=== PATIENT | male | born 2000 | race Two or more races ===

== ENCOUNTER 2025-02-09 15:21 | Emergency (ER) | payer MEDICARE, MEDICAID ==
[2025-02-09] MEDS ORDERED: CALCIUM CHLOR(10%) 100MG/ML 10ML SYRINGE IV ONE (15:22)
--- NOTE | 2025-02-09 15:35 | ED.PDOC ---
CPR-HPI HPI Comments 25 y/o M, with PMHx of autism is ARCHIE in full arrest with AutoPulse in place. EMS reports patient is coming from home where he was witnessed by neighbor, to fall and go down twice while taking out trash cans. Per EMS, once family went outside to check patient he was found unresponsive and with no pulse; CPR was commenced immediately. Upon EMS arrival, patient was found pulseless with moderate cyanosis to the head. In the field patient was given x4 epinephrin and was intubated with a 7.0 ETT secured at 21cm at the teeth. Family further reports, prior to arrest patient c/o Flu-Like symptoms and chest pain x3days. Patient arrived to the ED at 1520 and was transferred to ER bed 07 for further care. Chief Complaint: CPR Time Seen by MD: 15:20 Reviewed Notes: Nurses Notes, Senior Living Advisor Notes, Medications, Allergies Allergies: Coded Allergies: NO KNOWN ALLERGIES (Unverified , 02/09/25) Information Source: Emergency Med Personnel Mode of Arrival: Ambulatory Timing: Minutes Duration: Down time prior EMS: (10min), Total time prior hopital: (20min) Onset: With exertion Treatment: CPR, Intubation Response: No response Associated signs and symptoms: Chest Pain Past Medical History Past Medical History (Other): AUTISM Surgical History: Unknown Family History Family History: Unknown Social History Smoker: Unknown Alcohol: Unknown Drugs: Unknown Lives In: Home Unable to Obtain due to: Medical Urgency All Other Systems: Reviewed and Negative Physical Exam General Appearance: Other (CPR in progress) HEENT: Other (Pupils are nonreactive) Neck: Normal Inspection Respiratory: Other (Patient is intubated) Cardiovascular: Other (Pulses) Breast Exam: Deferred Gastrointestinal: No Organomegaly Genitalia: Deferred Pelvic: Deferred Rectal: Deferred Extremities: No pedal edema Neurologic: Other (Unresponsive) Cerebellar Function: NOT DONE Reflexes: NOT DONE Skin: Mottled Lymphatic: NOT DONE Was a procedure done? Was a procedure done?: No Differential Dx CPR Differential Diagnosis: Cardiopulmonary arrest, Respiratory Failure Time of 1ST Reevaluation: 15:50 Reevaluation 1ST: Unchanged Patient Education/Counseling: Pt Unresponsive Family Education/Counseling: Diagnosis, Treatment Departure 1 Departure Time of Disposition: 16:50 (Patient presented we will CPR in progress. Patient with prolonged downtime. ACLS per protocol) Impression: Primary Impression: Cardiac arrest Disposition: 20 Condition: Other () Critical Care Note Critical Care Time?: No Heart Score Heart Score: Heart Score Response (Comments) Value History N/A 0 EKG N/A 0 Age N/A 0 Risk Factors N/A 0 Troponin N/A 0 Total 0 Stability Stability form required: No I personally scribed for ANDER PAYTON MD ([email or web address]) on 02/09/25 at 15:35. Elect ronically submitted by Isela Munoz ([email or web address]). I personally scribed for ANDER PAYTON MD ([email or web address]) on 02/09/25 at 15:43. Electronically submitted by Isela Munoz ([email or web address]). ANDER PAYTON MD Feb 09, 2025 15:35
--- NOTE | 2025-02-09 19:24 | RESUS ---
CODE WES ASSESSSMENT History of Events History of Events: Secured code wes arrived at 1520 Initial Information Date: Feb 09, 2025 Time: 15:20 Location of Arrest: ER CPR started by whom: Bystander Pre-Hospital Care: ACLS Type of arrest: Cardiac, Respiratory, Adult, Witnessed Spontaneous Respirations: No Pulse Present: No Monitoring: ECG, Pulse Oximetry Crash Cart Opened and Supplies: Yes Airway Ventilation Breathing at Onset: Assisted Oxygen Delivery Method: Ambu-Bag Artificial Ventilation: Bag/Endo tube Intubation Size: 7.0 cuffed Intubated by: EMS Intubated orally: Yes Circulation Circulation #1: Time: 15:20 Circulation Comment: [place] Circulation #2: Time: 15:22 Circulation Comment: [place] Circulation #3: Time: 15:24 Circulation Comment: [place] Circulation #4: Time: 15:26 Circulation Comment: PEA Circulation #5: Time: 15:28 Circulation Comment: [place] Circulation #6: Time: 15:30 Circulation Comment: [place] Circulation #7: Time: 15:32 Circulation Comment: PEA THEN [place]OLE Defibrillation Defbrillation : Time Defibrillator Applied: 15:21 Medications & Response Medications and Responses #1: Medication Time: 15:23 ADULT Medications Given ADULT: Epinephrine 1 mg Route of Administration: IO Medications and Responses #2: Medication Time: 15:24 ADULT Medications Given ADULT: 2 Amps Na Bicarb Route of Administration: IO Medications and Responses #3: Medication Time: 15:25 ADULT Medications Given ADULT: Calcium Chloride 10 mL (X2) Medications and Responses #4: Medication Time: 15:27 ADULT Medications Given ADULT: Epinephrine 1 mg Route of Administration: IO Medications and Responses #5: Medication Time: 15:28 ADULT Medications Given ADULT: Narcan 1 mg (2MG), Magnesium Sulfate 2 gm Route of Administration: IO Medications and Responses #6: Medication Time: 15:30 ADULT Medications Given ADULT: Epinephrine 1 mg Route of Administration: IO Nurses Notes Gustavo Coma Scale Eye Opening: None (1) Gustavo Coma Scale Verbal: None (1) Gustavo Coma Scale Motor: None (1) Pupil Reaction: Non Reactive Bedside Blood Glucose: 82 (AT 1524) EKG Rhythm: Asystole Nurses Notes - Comment: Dr Smith spoke with family who came to bedside at 1529. Time Code Ended Time Code Ended: 15:33 Post Arrest Status: Outcome of code: Unsuccessful Patient pronounced by: Dr Smith Time patient pronounced: 15:33 Family notified: Yes Code Team Present: Dr Hernando Smith, Suly Briones foxing painter, Sachin Pierre privacy manager, Melina Brar RN, Harvinder RT, Nicole RT, Ignacio Aldridge Robin R Feb 09, 2025 19:24
== END 2025-02-09 15:37 ==
LOC: EDBD 15:21 → ER 15:21
DX: I46.9 Cardiac arrest, cause unspecified (principal); F84.0 Autistic disorder
CPT/HCPCS: 92950